=== PATIENT | female | born 1975 | race Caucasian/White ===

== ENCOUNTER 2017-01-16 23:40 | Emergency (ER) | payer OTHER ==
[2017-01-17 00:20] VITALS: BP 131/94; PULSE 76; TEMP 97.4; BMI 25.0
--- NOTE | 2017-01-17 01:02 | PDOC ---
History of Present Illness - History of Present Illness Initial Comments: 01/17/17 02:19 The patient is a 41 year old female, with no significant past medical history, who presents to the emergency department with sudden onset of right sided, sharp , suprapubic pain today. The patient states she is leaving to [place] on Tuesday and was concerned about her pain. She states she has been eating normally and moving her bowels as usual. She reports the last day of her LMP was a couple of days ago. She denies history of ovarian cysts. She denies chest pain, shortness of breath, headache and dizziness. She denies fever, chills, nausea, vomit, diarrhea and constipation. She denies dysuria, frequency, urgency and hematuria. Allergies: NKDA <Dominique Rivas - Last Filed: 01/17/17 02:34> <Sanjuanita Beal - Last Filed: 01/17/17 06:09> - General Chief Complaint: Pain Stated Complaint: RIGHT SIDE PAIN Time Seen by Provider: 01/17/17 01:02 Past History <Dominique Rivas - Last Filed: 01/17/17 02:34> - Past Medical History Asthma: Yes Other medical history: PE 2011 - Psycho/Social/Smoking Cessation Hx Suicidal Ideation: No Smoking History: Never smoked <Sanjuanita Beal - Last Filed: 01/17/17 06:09> - Past Medical History Allergies/Adverse Reactions: Allergies Allergy/AdvReac Type Severity Reaction Status Date / Time No Known Allergies Allergy Verified 01/17/17 00:02 Review of Systems - Review of Systems Able to Perform ROS?: Yes Comments:: 01/17/17 02:19 GENERAL/CONSTITUTIONAL: No fever or chills. No weakness. HEAD, EYES, EARS, NOSE AND THROAT: No change in vision. No ear pain or discharge. No sore throat. CARDIOVASCULAR: No chest pain or shortness of breath. RESPIRATORY: No cough, wheezing, or hemoptysis. GASTROINTESTINAL: (+) right lower quadrant/suprapubic pain. No nausea, vomiting , diarrhea or constipation. GENITOURINARY: No dysuria, frequency, or change in urination. MUSCULOSKELETAL: No joint or muscle swelling or pain. No neck or back pain. SKIN: No rash NEUROLOGIC: No headache, vertigo, loss of consciousness, or change in strength/ sensation. ENDOCRINE: No increased thirst. No abnormal weight change. HEMATOLOGIC/LYMPHATIC: No anemia, easy bleeding, or history of blood clots. ALLERGIC/IMMUNOLOGIC: No hives or skin allergy. <Dominique Rivas - Last Filed: 01/17/17 02:34> *Physical Exam - Vital Signs Last Vital Signs Temp Pulse Resp BP Pulse Ox 97.4 F L 76 18 131/94 100 01/16/17 23:59 01/16/17 23:59 01/16/17 23:59 01/16/17 23:59 01/16/17 23:59 - Physical Exam Comments: 01/17/17 02:19 GENERAL: Awake, alert, and fully oriented, in no acute distress HEAD: No signs of trauma EYES: PERRLA, EOMI, sclera anicteric, conjunctiva clear ENT: Auricles normal inspection, hearing grossly normal, nares patent, oropharynx clear without exudates. Moist mucosa NECK: Normal ROM, supple, no lymphadenopathy, JVD, or masses LUNGS: Breath sounds equal, clear to auscultation bilaterally. No wheezes, and no crackles HEART: Regular rate and rhythm, normal S1 and S2, no murmurs, rubs or gallops ABDOMEN: Soft, nontender, normoactive bowel sounds. No guarding, no rebound. No masses EXTREMITIES: Normal range of motion, no edema. No clubbing or cyanosis. No cords, erythema, or tenderness NEUROLOGICAL: Cranial nerves II through XII grossly intact. Normal speech, normal gait SKIN: Warm, Dry, normal turgor, no rashes or lesions noted. <Dominique Rivas - Last Filed: 01/17/17 02:34> - Vital Signs Last Vital Signs Temp Pulse Resp BP Pulse Ox 97.4 F L 76 18 131/94 100 01/16/17 23:59 01/16/17 23:59 01/16/17 23:59 01/16/17 23:59 01/16/17 23:59 <Sanjuanita Beal - Last Filed: 01/17/17 06:09> ED Treatment Course - ADDITIONAL ORDERS Additional order review: Laboratory Results 01/17/17 01:08 Urine Color Colorless Urine Appearance Clear Urine pH 6.0 Urine Protein Negative Urine Glucose (UA) Negative Urine Ketones Negative Urine Blood Negative Urine Nitrite Negative Urine Bilirubin Negative Urine Urobilinogen Negative Ur Leukocyte Esterase Negative Urine HCG, Qual Negative - RADIOLOGY Radiograph Interpretation: 01/17/17 02:34 Exam: Transabdominal and endovaginal sonogram was read by Bryn Suarez M.D. at 02:18 EST Findings: The uterus is anteverted and measures 8.6 x 5 x 0.9 cm. The left ovary measures 1.9 x 2.6 x 1.7 cm with normal vascular flow seen on color Doppler images. The right ovary measures 3.4 x 2.1 x 3.7 cm and demonstrates normal arterial and venous flow on color Doppler images. On endovaginal images the uterus is anteverted. The endometrium measures 6 mm in diameter. Normal arterial flow seen in the left ovary and in the right ovary on color Doppler images. No free fluid seen. Impression: Normal appearance of the uterus endometrium and both ovaries with normal vascular flow seen bilaterally. <Dominique Rivas - Last Filed: 01/17/17 02:34> Medical Decision Making - Medical Decision Making 01/17/17 02:40 Patient Name: Erika Garcia This is a preliminary report by imaging e business consultant Exam: Transabdominal and endovaginal sonogram Images: 52 Clinical indication: Right lower quadrant pain. Rule out ovarian cyst. Findings: The uterus is anteverted and measures 8.6 x 5 x 0.9 cm. The left ovary measures 1.9 x 2.6 x 1.7 cm with normal vascular flow seen on color Doppler images. The right ovary measures 3.4 x 2.1 x 3.7 cm and demonstrates normal arterial and venous flow on color Doppler images. On endovaginal images the uterus is anteverted. The endometrium measures 6 mm in diameter. Normal arterial flow seen in the left ovary and in the right ovary on color Doppler images. No free fluid seen. Impression: Normal appearance of the uterus endometrium and both ovaries with normal vascular flow seen bilaterally. THIS DOCUMENT HAS BEEN ELECTRONICALLY SIGNED 01/17/17 06:05 Pt comes with RLQ pain. She has no flank pain, no fever, no rebound and no guarding, no dysuria, and no hematuria. Menses are normal, pt is not here. She wants to make sure that she has no appy, as she is going on vacation in 2 days. Pt has no indication for a CT scan. No pain on exam, no fever, eating normally, normal BMs and n N/V/D. I got a pelvic sono to visualize her ovaries. Ovaries are normal, right ovary has a small follicle or cyst within which is likely causing the pain. Stable for discharge at this time. If abd pain evolves, pt understands that she ought to return to the ER. <Sanjuanita Beal - Last Filed: 01/17/17 06:09> *DC/Admit/Observation/Transfer - Attestations Scribe Attestion: 01/17/17 02:20 Documentation prepared by Dominique Rivas, acting as medical dir for Sanjuanita Beal MD <Dominique Rivas - Last Filed: 01/17/17 02:34> - Discharge Dispostion Admit: No <Sanjuanita Beal - Last Filed: 01/17/17 06:09> Diagnosis at time of Disposition: Ovarian cyst - Discharge Dispostion Disposition: HOME Condition at time of disposition: Stable - Referrals Referrals: Earnest Brooks MD [Primary Care Provider] - Tessa Dobbs MD [Staff Physician] - - Patient Instructions Printed Discharge Instructions: Ovarian Cyst
[2017-01-17 01:27] LABS: URINE APPEARANCE CLEAR; URINE BILIRUBIN NEGATIVE (NEGATIVE); URINE BLOOD NEGATIVE (NEGATIVE); URINE COLOR COLORLESS; URINE GLUCOSE (UA) NEGATIVE (NEGATIVE); URINE KETONE NEGATIVE (NEGATIVE); URINE LEUK ESTERASE NEGATIVE (NEGATIVE); URINE NITRITE NEGATIVE (NEGATIVE); URINE PROTEIN NEGATIVE (NEGATIVE); URINE UROBILINOGEN NEGATIVE E.U./dl (0.2-1.0)
== END 2017-01-17 03:19 | disposition home or self-care (01) ==
LOC: JER 23:40
DX: N83.201 Unspecified ovarian cyst, right side (principal)
CPT/HCPCS: 76830-TC; 81003; 84703; 99281-25

== ENCOUNTER 2017-01-27 15:09 | Emergency (ER) | payer OTHER ==
[2017-01-27 15:28] VITALS: BMI 25.5
--- NOTE | 2017-01-27 16:22 | PDOC ---
History of Present Illness - General History Source: Patient - History of Present Illness Timing/Duration: reports: intermittent Abdominal Pain Onset Location: reports: RUQ <Omkar Vilchis - Last Filed: 01/27/17 18:38> <Harrison Vincent - Last Filed: 01/28/17 09:32> - General Chief Complaint: Pain Stated Complaint: PAIN RUQ/STOMACH INFLAMMATION Time Seen by Provider: 01/27/17 15:44 Past History - Past Medical History Asthma: Yes - Psycho/Social/Smoking Cessation Hx Suicidal Ideation: No Smoking History: Never smoked Information on smoking cessation initiated: No Hx Alcohol Use: No Drug/Substance Use Hx: No Substance Use Type: None <Omkar Vilchis - Last Filed: 01/27/17 18:38> <Harrison Vincent - Last Filed: 01/28/17 09:32> - Past Medical History Allergies/Adverse Reactions: Allergies Allergy/AdvReac Type Severity Reaction Status Date / Time sea food Allergy Uncoded 01/27/17 15:28 Home Medications: Ambulatory Orders NK [No Known Home Medication] 01/27/17 Review of Systems - Review of Systems Constitutional: No: Chills, Fever Respiratory: No: Shortness of Breath Cardiac (ROS): No: Chest Pain ABD/GI: No: Constipated, Diarrhea, Nausea, Vomiting : No: Burning, Dysuria, Discharge, Frequency, Flank Pain, Hematuria Musculoskeletal: No: Back Pain <Omkar Vilchis Last Filed: 01/27/17 18:38> *Physical Exam - Vital Signs Last Vital Signs Temp Pulse Resp BP Pulse Ox 97.8 F 83 18 124/82 98 01/27/17 15:26 01/27/17 15:26 01/27/17 15:26 01/27/17 15:26 01/27/17 15:26 - Physical Exam General Appearance: Yes: Appropriately Dressed. No: Apparent Distress HEENT: positive: Normal Voice Neck: positive: Supple Respiratory/Chest: negative: Respiratory Distress Cardiovascular: positive: Regular Rate, S1, S2 Gastrointestinal/Abdominal: positive: Tender (minimally ttp to RUQ, negmurpheys) Musculoskeletal: negative: CVA Tenderness Extremity: positive: Normal Inspection Integumentary: positive: Dry, Warm Neurologic: positive: Fully Oriented, Alert, Normal Mood/Affect <Omkar Vilchis - Last Filed: 01/27/17 18:38> - Vital Signs Last Vital Signs Temp Pulse Resp BP Pulse Ox 98.3 F 73 20 134/75 98 01/27/17 19:21 01/27/17 19:21 01/27/17 19:21 01/27/17 19:21 01/27/17 19:21 <Harrison Vincent - Last Filed: 01/28/17 09:32> ED Treatment Course - LABORATORY CBC & Chemistry Diagram: 01/27/17 16:10 01/27/17 16:10 - RADIOLOGY Radiology Studies Ordered: Category Date Time Status ABDOMEN US -LIMITED [US] Stat Ultrasound 01/27/17 16:09 Ordered <Omkar Vilchis - Last Filed: 01/27/17 18:38> - LABORATORY CBC & Chemistry Diagram: 01/27/17 16:10 01/27/17 16:10 - ADDITIONAL ORDERS Additional order review: 01/27/17 16:10 RBC 4.48 MCV 87.3 MCHC 32.6 RDW 13.7 MPV 8.6 Neutrophils % 65.5 Lymphocytes % 26.6 Monocytes % 5.2 Eosinophils % 2.2 Basophils % 0.5 <Harrison Vincent - Last Filed: 01/28/17 09:32> Medical Decision Making - Medical Decision Making 01/27/17 16:18 41-year-old female, h/o provoked PE, not currently on AC, here with right upper quadrant pain. Patient was seen in ED approximately 10 days ago for RLQ abdominal pain. A pelvic ultrasound was done which was read as small R ovarian cyst, no e/o torsion. Appendix was not mentioned. Patient states she has since traveled to [place] and continued to have pain there but noticed that pain now localized to right upper quadrant and present only after po intake. Lower abd pain has since resolved. No nausea, vomiting, fever, chills, change in bowel movements, vag discharge or dysuria. Of note, ua was neg on prior visit. Denies CP/SOB or palpitations See exam RUQ pain well jung and stable w/ minimal ttp to RUQ, neg Murpheys, rest of exam unremarkable R/o biliary source, doubt acute mindy given duration of sxs, possibly gastritis -pain control -labs -US eval for GS 01/27/17 16:22 01/27/17 18:38 Labs and US unremarkable. Pt informed, asx at this time. Will dc w/ GI f/u 01/27/17 18:39 01/27/17 18:39 01/27/17 18:43 01/27/17 18:43 <Omkar Vilchis - Last Filed: 01/27/17 18:38> - Medical Decision Making 01/28/17 09:32 The patient was seen and evaluated in conjunction with ADI Vilchis under my direct supervision, ancillary studies were reviewed. I agree with the plan as outlined by ADI Vilchis . <Harrison Vincent - Last Filed: 01/28/17 09:32> *DC/Admit/Observation/Transfer <Omkar Vilchis - Last Filed: 01/27/17 18:38> <Harrison Vincent - Last Filed: 01/28/17 09:32> Diagnosis at time of Disposition: Abdominal pain Qualifiers: Abdominal location: right upper quadrant Qualified Code(s): R10.11 - Right upper quadrant pain - Discharge Dispostion Disposition: HOME Condition at time of disposition: Good - Referrals Referrals: Earnest Brooks MD [Primary Care Provider] - Fer Thurman MD [Staff Physician] - - Patient Instructions Printed Discharge Instructions: DI for Abdominal Pain-Adult Additional Instructions: The source of your pain is unclear at this time as your labs and ultrasound were negative. Please follow up with Dr Thurman of GI if symptoms worsen
[2017-01-27 16:36] LABS: BASOPHIL 0.5 % (0-2.0); EOSINOPHIL 2.2 % (0-4.5); MCH 28.4 pg (25.7-33.7); MCHC 32.6 g/dl (32.0-36.0); MEAN CELL VOLUME 87.3 fl (80-96); MEAN PLT VOLUME 8.6 fl (7.5-11.1); NEUTROPHILS 65.5 % (42.8-82.8); PLATELET COUNT 218 K/MM3 (134-434); RDW 13.7 % (11.6-15.6); WHITE BLOOD COUNT 6.4 K/mm3 (4.0-10.0)
[2017-01-27 17:06] LABS: ALK PHOS 47 U/L (45-117); ANION GAP 11 (8-16); BILIRUBIN,TOTAL 0.8 mg/dL (0.2-1.0); CALCIUM 9.2 mg/dL (8.5-10.1); CO2 26 mmol/L (21-32); CREATININE 0.7 mg/dL (0.55-1.02); GLUCOSE,RANDOM 94 mg/dL (74-106); SGOT/AST 9 U/L (15-37); SGPT/ALT 16 U/L (12-78); TOT PROT 7.8 g/dl (6.4-8.2)
[2017-01-27 19:21] VITALS: BP 134/75; PULSE 73; TEMP 98.3
== END 2017-01-27 19:26 | disposition home or self-care (01) ==
LOC: JER 15:09
DX: R10.11 Right upper quadrant pain (principal); Z86.711 Personal history of pulmonary embolism
CPT/HCPCS: 36415; 76705-TC; 80053; 83690; 84703; 85025; 99282-25